=== PATIENT | female | born 1995 | race Asian ===

== ENCOUNTER 2024-03-02 09:00 | Emergency (ER) | payer BC ==
[2024-03-02] MEDS: Acetaminophen/Codeine 300-30 MG Tab PO ONE ×2 (09:35→15:42)
[2024-03-02 09:57] LABS: BASOPHILS ABSOLUTE AUTO 0.03 K/uL (0.00-0.10); BASOPHILS PERCENT AUTO 0.3 % (0.1-1.3); HEMATOCRIT 37.5 % (34.3-46.0); HEMOGLOBIN 12.2 g/dL (11.2-15.5); IMMATURE GRAN PERCENT AUTO 0.2 % (0.0-0.7); LYMPHOCYTES ABSOLUTE AUTO 1.58 K/uL (0.8-3.3); LYMPHOCYTES PERCENT AUTO 16.1 % (11.4-47.7); MEAN CORPUSCULAR HEMOGLOBIN 24.3 pg (31.6-35.5); MEAN CORPUSCULAR HGB CONC 32.5 g/dL (31.6-35.5); MEAN CORPUSCULAR VOLUME 74.7 fL (81.4-99.0); MONOCYTES PERCENT AUTO 8.1 % (3.3-12.6); NEUTROPHILS ABSOLUTE AUTO 7.21 K/uL (1.0-7.6); NEUTROPHILS PERCENT AUTO 73.3 % (40.0-78.1); PLATELET COUNT,PLT 330 K/uL (130-375); RED BLOOD CELL COUNT 5.02 M/uL (3.77-5.24); WHITE BLOOD CELL COUNT,WBC 9.8 K/uL (3.2-11.0)
[2024-03-02 10:01] LABS: RETICULOCYTE COUNT PERCENT 1.49 % (0.53-2.48)
[2024-03-02 10:09] LABS: IMMATURE GRAN ABSOLUTE AUTO 0.02 K/uL (0.00-0.23)
[2024-03-02 10:29] LABS: INR 1.1; PROTHROMBIN TIME 11.1 sec (9.2-10.6)
[2024-03-02 10:35] LABS: A/G RATIO 0.6 (1.2-2.2); ALANINE AMINOTRANSFERASE,ALT 21 U/L (12-78); ALBUMIN 3.6 g/dL (3.4-5.0); ALKALINE PHOSPHATASE 91 U/L (46-116); ASPARTATE AMNIOTRANSFERASE,AST 16 U/L (15-37); BILIRUBIN TOTAL 0.8 mg/dL (0.2-1.0); BLOOD UREA NITROGEN,BUN 11 mg/dL (7-18); CARBON DIOXIDE,CO2 20 mmol/L (21-32); CHLORIDE,CL 101 mmol/L (100-108); CREATININE 0.9 mg/dL (0.6-1.0); EST CRCL DRUG DOSING (CG) 78.21 mL/min; ESTIMATED GFR 88 mL/min (>60); GLUCOSE RANDOM 92 mg/dL (74-106); POTASSIUM,K 3.4 mmol/L (3.6-5.2); PROTEIN TOTAL,TP 9.2 g/dL (6.4-8.2); SODIUM,NA 136 mmol/L (140-148)
[2024-03-02 10:40] LABS: ANION GAP 18.4 mmol/L (5.0-14.0)
[2024-03-02] MEDS: Sodium Chloride 0.9% 500 ML IV ONE ×3 (11:35→13:43)
[2024-03-02] MEDS: Aspirin 81 MG Tab.Chew PO ONE (11:50)
[2024-03-02] MEDS: Iopamidol 612 MG/ML 100 ML Bottle IV ONE (12:49)
[2024-03-02] MEDS: Sodium Chloride 0.9% 60 ML IV SCH (12:49)
[2024-03-02] MEDS: Apixaban 5 MG Tab PO ONE ×2 (13:42→14:13)
== END 2024-03-02 16:05 | disposition critical access hospital (66) ==
LOC: JP.ED 09:00
DX: I82.412 Acute embolism and thrombosis of left femoral vein (principal)
CPT/HCPCS: 36415; 74177; 80053; 83605; 84145; 85025; 85045; 85379; 85610; 85651; 93005; 93010; 93971; 99285; A9270; J3490; J7030; Q9967